=== PATIENT | female | born 1980 | race Caucasian/White ===

== ENCOUNTER 2022-01-12 21:21 | Emergency (ER) | payer OTHER ==
[~2022-01-12] VITALS: Ht 162.6 cm; Wt 70.5 kg
[2022-01-12 21:29] VITALS: TEMP 97.6
[2022-01-12] MEDS ORDERED: SINGULAIR 110 MG/TAB PO (21:36)
[2022-01-12] MEDS ORDERED: ZYRTEC 10MG10 MG PO (21:36)
[2022-01-12] MEDS ORDERED: EFFEXOR 3737.5 MG/TA PO (21:36)
[2022-01-12] MEDS ORDERED: EFFEXOR 75M75 MG/TAB PO (21:37)
[2022-01-12] MEDS ORDERED: AMOXICILLIN 50500 MG PO (21:37)
[2022-01-12] MEDS ORDERED: CLEOCIN HCL300 MG PO (22:25)
[2022-01-12 22:33] VITALS: BP 160/90; PULSE 80
== END 2022-01-12 22:34 | disposition home or self-care (01) ==
LOC: COL.ER 21:21
DX: K04.7 Periapical abscess without sinus (principal)